=== PATIENT | male | born 1965 | race African-American/Black ===

== ENCOUNTER 2016-10-29 10:37 | Emergency (ER) | payer SELFPAY ==
[~2016-10-29] VITALS: Ht 167.6 cm; Wt 110.0 kg
[2016-10-29] MEDS ORDERED: TETANUS, DIPHTHERIA, PERTUSSIS VAC/PF 0.5ML (>7YR OLD) IM ONE (11:30)
[2016-10-29] MEDS: KETOROLAC 60MG/2ML VIAL IM ONE (11:55)
[2016-10-29 14:24] VITALS: BP 148/81
== END 2016-10-29 14:29 | disposition home or self-care (01) ==
LOC: ER 11:59
DX: S61.452A Open bite of left hand, initial encounter (principal); I51.9 Heart disease, unspecified; F17.200 Nicotine dependence, unspecified, uncomplicated; W54.0XXA Bitten by dog, initial encounter; Y93.89 Activity, other specified; Y92.89 Other specified places as the place of occurrence of the external cause; Y99.8 Other external cause status
CPT/HCPCS: 90471; 90715; 93005; 99283; J1885

== ENCOUNTER 2022-01-16 00:27 | Inpatient (IN) | payer OTHER ==
[~2022-01-16] VITALS: Ht 172.7 cm; Wt 97.1 kg
[2022-01-16 04:22] LABS: CHLORIDE 93 mEq/L (98-107)
[2022-01-16 04:30] LABS: BASOPHILS % 0.8 % (0.0-2.0); EOSINOPHILS % 2.6 % (0.0-5.0); HEMOGLOBIN. 8.9 g/dL (14.0-18.0); LYMPHOCYTES % 23.1 % (20.0-50.0); MEAN CORPUSCULAR HEMOGLOBIN 28.9 pg (28.0-32.0); MEAN CORPUSCULAR VOLUME 87.9 fL (80.0-94.0); MEAN PLATELET VOLUME 6.9 fl (7.4-10.4); MONOCYTES % 8.3 % (2.0-8.0); NEUTROPHILS % 65.2 % (40.0-76.0); PLATELET 575 x1000/uL (130-400); RED BLOOD CELL COUNT 3.07 mill/uL (4.7-6.1); RED CELL DISTRIBUTION WIDTH 16.1 % (11.6-14.6)
[2022-01-16 04:31] LABS: ETHANOL BLOOD < 10 mg/dL
[2022-01-16 04:32] LABS: BG BASE EXCESS -5.7 mmol/L (-2.0-2.0); BG CARBOXYHEMOGLOBIN 0.3 % (0.5-1.5); BG DEOXYHEMOGLOBIN 1.4 % (0.0-5.0); BG FRACTION INSPIRED OXYGEN 36; BG HCO3 ACT 17.1 mmol/L (22.0-26.0); BG METHEMOGLOBIN 0.1 % (0.0-1.5); BG OXYGEN SATURATION 98.6 % (92.0-98.5); BG OXYHEMOGLOBIN 98.2 % (94.0-97.0); BG PCO2 26.4 mmHg (35.0-45.0); BG PO2 143.7 mmHg (75.0-100.0); BG SAMPLE SITE LEFT BRACHIAL; BG TOTAL HEMOGLOBIN 12.4 g/dL (12.0-18.0); BG VENT MODE NASAL CANNULA
[2022-01-16] MEDS ORDERED: CALCIUM GLUCONATE 100MG/ML 10ML VIAL IV ONE (05:15)
[2022-01-16] MEDS ORDERED: FUROSEMIDE 40MG/4ML VIAL IVP ONE (05:15)
[2022-01-16] MEDS ORDERED: FUROSEMIDE 40MG/4ML VIAL ONE (06:47)
[2022-01-16] MEDS ORDERED: CALCIUM GLUCONATE 1GM PREMIX 50 ML IV NR (08:00)
[2022-01-16] MEDS ORDERED: APIX5TAB PO (10:13)
[2022-01-16] MEDS ORDERED: AMIO100T4 PO (10:13)
[2022-01-16] MEDS ORDERED: ATOR-2 PO (10:13)
[2022-01-16] MEDS ORDERED: FURO-151 PO (10:13)
[2022-01-16] MEDS ORDERED: METO-396 PO (10:13)
[2022-01-16] MEDS ORDERED: PROT40 PO (10:13)
[2022-01-16] MEDS ORDERED: TEMA30CA PO (10:33)
[2022-01-16] MEDS ORDERED: RISP2TAB85 PO (10:33)
[2022-01-16] MEDS ORDERED: NEPVIT PO (10:33)
[2022-01-16] MEDS ORDERED: ENOXAPARIN 40MG/0.4ML SYR SUBCUT SCH (10:45)
[2022-01-16] MEDS ORDERED: ONDANSETRON HCL 4MG/2ML INJ IV PRN (10:45)
[2022-01-16] MEDS ORDERED: ACETAMINOPHEN 325MG TABLET PO PRN (10:45)
[2022-01-16] MEDS ORDERED: IPRATROPIUM/ALBUTEROL 0.5-3(2.5)MG/3ML NEB HHN PRN (10:45)
[2022-01-16] MEDS: FUROSEMIDE 40MG/4ML VIAL IVP SCH (11:43)
[2022-01-16 12:00] VITALS: BP 99/61
[2022-01-16 12:53] VITALS: BP 99/61
[2022-01-16] MEDS: ENOXAPARIN 40MG/0.4ML SYR SUBCUT SCH (13:54)
[2022-01-16] MEDS ORDERED: SODIUM POLYSTYRENE SULFONATE 15 G/60 ML BOT PO ONE (14:00)
[2022-01-16] MEDS ORDERED: PNEUMOCOCCAL VACCINE IM ONE (14:15)
[2022-01-16] MEDS ORDERED: INFLUENZA VACCINE IM ONE (14:15)
[2022-01-16 16:00] VITALS: BP 106/68
[2022-01-16 17:46] LABS: CLARITY URINE CLEAR (CLEAR); COLOR URINE YELLOW (YELLOW); KETONES URINE NEGATIVE (NEGATIVE); LEUKOCYTE ESTERASE URINE NEGATIVE (NEGATIVE); NITRITE URINE NEGATIVE (NEGATIVE); OCCULT BLOOD URINE TRACE (NEGATIVE); PROTEIN URINE TRACE (NEGATIVE); UROBILINOGEN URINE 0.2 E.U./dL (0.2-1.0)
[2022-01-16 18:26] LABS: INR 1.3; PROTHROMBIN TIME 13.5 sec (9.6-11.0)
[2022-01-16 18:42] LABS: *AMPHETAMINES SCREEN URINE NEGATIVE (NEGATIVE); *BARBITURATES SCREEN URINE NEGATIVE (NEGATIVE); *BENZODIAZEPINES SCREEN URINE NEGATIVE (NEGATIVE); *COCAINE SCREEN URINE NEGATIVE (NEGATIVE); CANNABINOID URINE SCREEN NEGATIVE (NEGATIVE); METHADONE URINE SCREEN NEGATIVE (NEGATIVE); OPIATES URINE SCREEN NEGATIVE (NEGATIVE); PHENCYCLIDINE URINE SCREEN NEGATIVE (NEGATIVE)
[2022-01-16 19:04] LABS: CREATINE KINASE MB FRACTION 3.3 ng/mL (0.5-3.6)
[2022-01-16 20:00] VITALS: BP 116/76
[2022-01-16 20:57] LABS: BASOPHILS % 0.9 % (0.0-2.0); EOSINOPHILS % 6.2 % (0.0-5.0); HEMATOCRIT. 24.9 % (42.0-52.0); HEMOGLOBIN. 8.4 g/dL (14.0-18.0); LYMPHOCYTES % 18.4 % (20.0-50.0); MEAN CORPUSCULAR HEMOGLOBIN 29.5 pg (28.0-32.0); MEAN CORPUSCULAR VOLUME 87.5 fL (80.0-94.0); MONOCYTES % 8.6 % (2.0-8.0); NEUTROPHILS % 65.9 % (40.0-76.0); PLATELET 595 x1000/uL (130-400); RED BLOOD CELL COUNT 2.85 mill/uL (4.7-6.1); RED CELL DISTRIBUTION WIDTH 16.7 % (11.6-14.6)
[2022-01-16 21:16] LABS: CHLORIDE 96 mEq/L (98-107)
[2022-01-16 21:26] LABS: HDL CHOLESTEROL 43 mg/dL (40-59); LDL CHOLESTEROL 54 mg/dL (5-100)
[2022-01-17] VITALS: BP 92/58
[2022-01-17 02:11] LABS: CREATINE KINASE MB FRACTION 2.7 ng/mL (0.5-3.6)
[2022-01-17 04:00] VITALS: BP 119/57
[2022-01-17 06:44] LABS: BASOPHILS % 0.9 % (0.0-2.0); EOSINOPHILS % 4.9 % (0.0-5.0); HEMATOCRIT. 23.2 % (42.0-52.0); HEMOGLOBIN. 7.8 g/dL (14.0-18.0); LYMPHOCYTES % 15.3 % (20.0-50.0); MEAN CORPUSCULAR HEMOGLOBIN 28.7 pg (28.0-32.0); MEAN CORPUSCULAR VOLUME 85.9 fL (80.0-94.0); MEAN PLATELET VOLUME 6.7 fl (7.4-10.4); MONOCYTES % 6.4 % (2.0-8.0); NEUTROPHILS % 72.5 % (40.0-76.0); PLATELET 533 x1000/uL (130-400); RED CELL DISTRIBUTION WIDTH 16.3 % (11.6-14.6)
[2022-01-17 07:49] LABS: CHLORIDE 93 mEq/L (98-107); CREATINE KINASE 181 IU/L (39-308); PHOSPHORUS 5.1 mg/dL (2.5-4.9)
[2022-01-17 08:00] VITALS: BP 94/57
[2022-01-17] MEDS: ASPIRIN 81MG TABLET PO SCH (08:33)
[2022-01-17] MEDS: FUROSEMIDE 40MG/4ML VIAL IVP SCH (08:33)
[2022-01-17] MEDS ORDERED: POTASSIUM CHLORIDE INJ 40 MEQ in DEXT 5% WATER 250 ML IV ONE (10:00)
[2022-01-17 12:00] VITALS: BP 90/57
[2022-01-17 12:11] LABS: BG BASE EXCESS -1.4 mmol/L (-2.0-2.0); BG CARBOXYHEMOGLOBIN 0.2 % (0.5-1.5); BG DEOXYHEMOGLOBIN 6.8 % (0.0-5.0); BG HCO3 ACT 22.2 mmol/L (22.0-26.0); BG METHEMOGLOBIN 0.3 % (0.0-1.5); BG OXYGEN SATURATION 93.2 % (92.0-98.5); BG OXYHEMOGLOBIN 92.7 % (94.0-97.0); BG PCO2 32.7 mmHg (35.0-45.0); BG PH 7.449 (7.350-7.450); BG PO2 69.5 mmHg (75.0-100.0); BG SAMPLE SITE RIGHT RADIAL; BG TOTAL HEMOGLOBIN 8.8 g/dL (12.0-18.0); BG VENT MODE ROOM AIR
[2022-01-17] MEDS: KCL 20MEQ/100ML X 2 FOR TOTAL KCL 40MEQ/200ML IV SCH ×2 (13:00→13:11)
[2022-01-17] MEDS: ENOXAPARIN 40MG/0.4ML SYR SUBCUT SCH (13:12)
[2022-01-17] MEDS ORDERED: POTASSIUM CHLORIDE 20MEQ TABLET SR PO NR (14:30)
[2022-01-17 15:27] VITALS: BP 93/59
[2022-01-17 20:00] VITALS: BP 109/69
[2022-01-18] VITALS (8 sets, daily range): BP systolic 84–112; BP diastolic 51–72
[2022-01-18 08:32] LABS: BASOPHILS % 0.8 % (0.0-2.0); EOSINOPHILS % 8.1 % (0.0-5.0); HEMATOCRIT. 24.1 % (42.0-52.0); HEMOGLOBIN. 8.1 g/dL (14.0-18.0); LYMPHOCYTES % 18.6 % (20.0-50.0); MEAN CORPUSCULAR HEMOGLOBIN 29.5 pg (28.0-32.0); MEAN CORPUSCULAR VOLUME 87.4 fL (80.0-94.0); MEAN PLATELET VOLUME 7.1 fl (7.4-10.4); MONOCYTES % 7.7 % (2.0-8.0); NEUTROPHILS % 64.8 % (40.0-76.0); PLATELET 514 x1000/uL (130-400); RED BLOOD CELL COUNT 2.75 mill/uL (4.7-6.1); RED CELL DISTRIBUTION WIDTH 16.5 % (11.6-14.6)
[2022-01-18] MEDS: FUROSEMIDE 40MG/4ML VIAL IVP SCH ×2 (09:01→18:01)
[2022-01-18] MEDS: ASPIRIN 81MG TABLET PO SCH (09:04)
[2022-01-18 10:38] LABS: PHOSPHORUS 3.8 mg/dL (2.5-4.9)
[2022-01-18] MEDS ORDERED: POTASSIUM CHLORIDE 20MEQ TABLET SR PO NR (11:15)
[2022-01-18] MEDS: ENOXAPARIN 40MG/0.4ML SYR SUBCUT SCH (11:36)
[2022-01-18] MEDS ORDERED: REGADENOSON 0.4 MG/5 ML IV ONE (11:45)
[2022-01-18] MEDS ORDERED: LACTULOSE 20G/30ML UDC PO PRN (17:00)
[2022-01-18] MEDS: CARVEDILOL 3.125 MG TABLET PO SCH (21:00)
[2022-01-19] VITALS: BP 93/58
[2022-01-19 04:00] VITALS: BP 90/63
[2022-01-19] MEDS: FUROSEMIDE 40MG/4ML VIAL IVP SCH ×2 (06:00→18:12)
[2022-01-19 06:42] LABS: BASOPHILS % 0.5 % (0.0-2.0); EOSINOPHILS % 4.5 % (0.0-5.0); HEMATOCRIT. 24.6 % (42.0-52.0); HEMOGLOBIN. 8.1 g/dL (14.0-18.0); LYMPHOCYTES % 16.7 % (20.0-50.0); MEAN CORPUSCULAR VOLUME 87.7 fL (80.0-94.0); MEAN PLATELET VOLUME 7.3 fl (7.4-10.4); MONOCYTES % 8.9 % (2.0-8.0); NEUTROPHILS % 69.4 % (40.0-76.0); PLATELET 470 x1000/uL (130-400); RED CELL DISTRIBUTION WIDTH 16.4 % (11.6-14.6)
[2022-01-19 08:00] VITALS: BP 91/64
[2022-01-19] MEDS: CARVEDILOL 3.125 MG TABLET PO SCH ×2 (09:00→21:00)
[2022-01-19] MEDS: ASPIRIN 81MG TABLET PO SCH (09:20)
[2022-01-19] MEDS ORDERED: REGADENOSON 0.4 MG/5 ML IV ONE ×2 (10:20→14:00)
[2022-01-19 11:08] LABS: VITAMIN B12 SERUM 923 pg/mL (211-911)
[2022-01-19] MEDS: ENOXAPARIN 40MG/0.4ML SYR SUBCUT SCH (11:12)
[2022-01-19 12:00] VITALS: BP 100/72
[2022-01-19 16:00] VITALS: BP 94/55
[2022-01-19 20:00] VITALS: BP 98/65
[2022-01-20] VITALS: BP 93/68
[2022-01-20 04:00] VITALS: BP 91/59
[2022-01-20] MEDS: FUROSEMIDE 40MG/4ML VIAL IVP SCH ×2 (06:00→18:24)
[2022-01-20 07:54] LABS: BASOPHILS % 0.7 % (0.0-2.0); EOSINOPHILS % 9.3 % (0.0-5.0); HEMATOCRIT. 25.4 % (42.0-52.0); HEMOGLOBIN. 8.3 g/dL (14.0-18.0); LYMPHOCYTES % 16.2 % (20.0-50.0); MEAN CORPUSCULAR HEMOGLOBIN 28.6 pg (28.0-32.0); MEAN CORPUSCULAR VOLUME 87.4 fL (80.0-94.0); MEAN PLATELET VOLUME 7.4 fl (7.4-10.4); MONOCYTES % 7.4 % (2.0-8.0); NEUTROPHILS % 66.4 % (40.0-76.0); PLATELET 394 x1000/uL (130-400); RED BLOOD CELL COUNT 2.91 mill/uL (4.7-6.1); RED CELL DISTRIBUTION WIDTH 16.6 % (11.6-14.6)
[2022-01-20 08:00] VITALS: BP 91/64
[2022-01-20] MEDS: CARVEDILOL 3.125 MG TABLET PO SCH ×2 (09:00→21:00)
[2022-01-20] MEDS: ASPIRIN 81MG TABLET PO SCH (09:00)
[2022-01-20 10:45] LABS: PHOSPHORUS 3.9 mg/dL (2.5-4.9)
[2022-01-20] MEDS: ENOXAPARIN 40MG/0.4ML SYR SUBCUT SCH (11:32)
[2022-01-20 12:00] VITALS: BP 95/69
[2022-01-20 16:00] VITALS: BP 90/67
[2022-01-20 20:00] VITALS: BP 92/65
[2022-01-21] VITALS: BP 98/67
[2022-01-21 04:00] VITALS: BP 104/70
[2022-01-21] MEDS: FUROSEMIDE 40MG/4ML VIAL IVP SCH ×2 (05:07→18:00)
[2022-01-21 07:22] LABS: BASOPHILS % 0.8 % (0.0-2.0); EOSINOPHILS % 8.3 % (0.0-5.0); HEMATOCRIT. 26.4 % (42.0-52.0); HEMOGLOBIN. 8.6 g/dL (14.0-18.0); LYMPHOCYTES % 18.6 % (20.0-50.0); MEAN CORPUSCULAR HEMOGLOBIN 28.8 pg (28.0-32.0); MEAN CORPUSCULAR VOLUME 88.6 fL (80.0-94.0); MEAN PLATELET VOLUME 7.1 fl (7.4-10.4); MONOCYTES % 6.6 % (2.0-8.0); NEUTROPHILS % 65.7 % (40.0-76.0); PLATELET 357 x1000/uL (130-400); RED BLOOD CELL COUNT 2.98 mill/uL (4.7-6.1); RED CELL DISTRIBUTION WIDTH 16.7 % (11.6-14.6)
[2022-01-21 08:00] VITALS: BP 99/65
[2022-01-21] MEDS: CARVEDILOL 3.125 MG TABLET PO SCH ×2 (09:00→21:00)
[2022-01-21 09:08] LABS: PHOSPHORUS 3.6 mg/dL (2.5-4.9)
[2022-01-21] MEDS: ASPIRIN 81MG TABLET PO SCH (09:52)
[2022-01-21] MEDS: ENOXAPARIN 40MG/0.4ML SYR SUBCUT SCH (11:12)
[2022-01-21 12:00] VITALS: BP 98/71
[2022-01-21] MEDS: MIDODRINE HCL 2.5MG TABLET PO SCH ×2 (15:30→18:33)
[2022-01-21 16:00] VITALS: BP 98/66
[2022-01-21] MEDS ORDERED: MIDO2.5T PO (16:31)
[2022-01-21] MEDS ORDERED: COR3 PO (16:31)
[2022-01-21] MEDS ORDERED: FURO-151 PO (16:31)
[2022-01-21 20:00] VITALS: BP 96/70
[2022-01-22] VITALS: BP 97/68
[2022-01-22 03:04] VITALS: BP 96/62
[2022-01-22 04:00] VITALS: BP 95/60
[2022-01-22] MEDS: FUROSEMIDE 40MG/4ML VIAL IVP SCH (06:00)
[2022-01-22 06:19] LABS: BASOPHILS % 0.6 % (0.0-2.0); HEMATOCRIT. 24.6 % (42.0-52.0); LYMPHOCYTES % 15.9 % (20.0-50.0); MEAN CORPUSCULAR HEMOGLOBIN 29.1 pg (28.0-32.0); MEAN CORPUSCULAR VOLUME 89.4 fL (80.0-94.0); MONOCYTES % 6.8 % (2.0-8.0); NEUTROPHILS % 69.7 % (40.0-76.0); RED BLOOD CELL COUNT 2.75 mill/uL (4.7-6.1); RED CELL DISTRIBUTION WIDTH 17.7 % (11.6-14.6)
[2022-01-22 06:34] LABS: PHOSPHORUS 3.7 mg/dL (2.5-4.9)
[2022-01-22 08:00] VITALS: BP 88/63
[2022-01-22] MEDS: CARVEDILOL 3.125 MG TABLET PO SCH (08:56)
[2022-01-22] MEDS: MIDODRINE HCL 2.5MG TABLET PO SCH (08:57)
[2022-01-22] MEDS: ASPIRIN 81MG TABLET PO SCH (08:57)
[2022-01-22 10:10] VITALS: BP 96/62
[2022-01-22] MEDS: ENOXAPARIN 40MG/0.4ML SYR SUBCUT SCH (11:12)
[2022-01-22 11:39] LABS: MEAN PLATELET VOLUME 7.4 fl (7.4-10.4); PLATELET 327 x1000/uL (130-400)
[2022-01-22 12:00] VITALS: BP 91/67
== END 2022-01-22 14:05 | disposition home or self-care (01) | DRG 194 ==
LOC: ER 00:27 → 7WST 05:46 → EDBEDREQ 05:54 → ENRESERV 07:00
PROVIDERS: ADMIT Internal Medicine; ATTEND Internal Medicine
DX: I13.0 Hypertensive heart and chronic kidney disease with heart failure and stage 1 through stage 4 chronic kidney disease, or unspecified chronic kidney disease (principal); E44.0 Moderate protein-calorie malnutrition; I82.411 Acute embolism and thrombosis of right femoral vein; N17.9 Acute kidney failure, unspecified; E87.1 Hypo-osmolality and hyponatremia; I48.91 Unspecified atrial fibrillation; I42.0 Dilated cardiomyopathy; D64.9 Anemia, unspecified; I50.23 Acute on chronic systolic (congestive) heart failure; E78.5 Hyperlipidemia, unspecified; F17.210 Nicotine dependence, cigarettes, uncomplicated; E87.6 Hypokalemia; N18.9 Chronic kidney disease, unspecified; D75.839 Thrombocytosis, unspecified; I25.10 Atherosclerotic heart disease of native coronary artery without angina pectoris; Z20.822 Contact with and (suspected) exposure to COVID-19; I36.1 Nonrheumatic tricuspid (valve) insufficiency; E87.5 Hyperkalemia; R06.89 Other abnormalities of breathing; R79.89 Other specified abnormal findings of blood chemistry; Z68.32 Body mass index [BMI] 32.0-32.9, adult; I25.2 Old myocardial infarction; Z82.49 Family history of ischemic heart disease and other diseases of the circulatory system
CPT/HCPCS: 36415; 36600; 71045; 71250; 76770; 78452; 80048; 80053; 80061; 80305; 80320; 81003; 82375; 82533; 82550; 82553; 82570; 82607; 82805; 82962; 83540; 83550; 83735; 83880; 84100; 84443; 84484; 84540; 85025; 85379; 87426; 90686; 90732; 93005; 93306; 93970; 97116; 97162; 97165; 97530; 99291; A9500; C9803; J0610; J1650; J1940; J2785; J3480; A4315; G0480

== ENCOUNTER 2022-01-24 18:33 | Inpatient (IN) | payer OTHER, MEDICAID ==
[~2022-01-24] VITALS: Ht 167.6 cm; Wt 96.2 kg
[~2022-01-24 18:33] MED LIST: AMIO100T4 PO; APIX5TAB PO; ATOR-2 PO; COR3 PO; FURO-151 PO; MIDO2.5T PO; NEPVIT PO; PROT40 PO; RISP2TAB85 PO; TEMA30CA PO
[2022-01-24] MEDS ORDERED: SODIUM CHLORIDE 0.9% 1,000 ML IV ONE (19:15)
[2022-01-24 19:38] LABS: BASOPHILS % 0.5 % (0.0-2.0); HEMOGLOBIN. 9.8 g/dL (14.0-18.0); LYMPHOCYTES % 15.4 % (20.0-50.0); MEAN CORPUSCULAR HEMOGLOBIN 29.4 pg (28.0-32.0); MEAN PLATELET VOLUME 8.4 fl (7.4-10.4); MONOCYTES % 5.8 % (2.0-8.0); NEUTROPHILS % 74.3 % (40.0-76.0); PLATELET 386 x1000/uL (130-400); RED BLOOD CELL COUNT 3.33 mill/uL (4.7-6.1); RED CELL DISTRIBUTION WIDTH 18.3 % (11.6-14.6)
[2022-01-24 19:43] LABS: CHLORIDE 100 mEq/L (98-107)
[2022-01-24] MEDS ORDERED: CALCIUM GLUCONATE 100MG/ML 10ML VIAL IV NR (22:30)
[2022-01-24] MEDS ORDERED: NOREPINEPHRINE 8 MG in DEXTROSE 5% WATER 250 ML IV NR (22:30)
[2022-01-25] VITALS (54 sets, daily range): BP systolic 60–127; BP diastolic 37–98
[2022-01-25] MEDS ORDERED: NOREPINEPHRINE 8MG/250ML PMX 250 ML IV PRN (08:30)
[2022-01-25] MEDS ORDERED: NOREPINEPHRINE 8 MG in DEXTROSE 5% WATER 250 ML IV PRN (10:45)
[2022-01-25] MEDS: ASPIRIN 81MG EC TABLET PO SCH (11:35)
[2022-01-25] MEDS: ENOXAPARIN 30MG/0.3ML SYR SUBCUT SCH (11:35)
[2022-01-25 12:17] LABS: BG BASE EXCESS -1.6 mmol/L (-2.0-2.0); BG CARBOXYHEMOGLOBIN 0.6 % (0.5-1.5); BG DEOXYHEMOGLOBIN 0.5 % (0.0-5.0); BG FRACTION INSPIRED OXYGEN 50; BG HCO3 ACT 22.7 mmol/L (22.0-26.0); BG METHEMOGLOBIN 0.3 % (0.0-1.5); BG OXYGEN SATURATION 99.5 % (92.0-98.5); BG OXYHEMOGLOBIN 98.6 % (94.0-97.0); BG PCO2 36.5 mmHg (35.0-45.0); BG PH 7.412 (7.350-7.450); BG SAMPLE SITE RIGHT BRACHIAL; BG TOTAL HEMOGLOBIN 9.3 g/dL (12.0-18.0); BG VENT MODE MASK - BIPAP
[2022-01-25] MEDS ORDERED: ONDANSETRON HCL 4MG/2ML INJ IV PRN (17:15)
[2022-01-25] MEDS ORDERED: ACETAMINOPHEN 325MG TABLET PO PRN ×2 (17:15)
[2022-01-25] MEDS: PANTOPRAZOLE SODIUM 40 MG/VIAL IV SCH (17:30)
[2022-01-25] MEDS: CARVEDILOL 6.25 MG TABLET PO SCH (21:00)
[2022-01-25] MEDS: ATORVASTATIN CALCIUM 20MG TABLET PO SCH (21:01)
[2022-01-25] MEDS: MAGNESIUM/ALUMINUM HYDROXIDE/SIMETHICONE 30ML UDC PO PRN (21:01)
[2022-01-25] MEDS: SODIUM CHLORIDE 0.9% INJ 3ML FLUSH IVF SCH (22:21)
[2022-01-25] MEDS: DIPHENHYDRAMINE 50MG/ML VIAL IV PRN (23:50)
[2022-01-26] VITALS (82 sets, daily range): BP systolic 82–165; BP diastolic 39–107
[2022-01-26] MEDS: SODIUM CHLORIDE 0.9% INJ 3ML FLUSH IVF SCH ×3 (05:05→21:06)
[2022-01-26] MEDS: DIPHENHYDRAMINE 50MG/ML VIAL IV PRN (05:05)
[2022-01-26 05:47] LABS: BASOPHILS % 0.6 % (0.0-2.0); EOSINOPHILS % 5.3 % (0.0-5.0); HEMATOCRIT. 26.5 % (42.0-52.0); HEMOGLOBIN. 8.6 g/dL (14.0-18.0); LYMPHOCYTES % 24.7 % (20.0-50.0); MEAN CORPUSCULAR HEMOGLOBIN 29.3 pg (28.0-32.0); MEAN CORPUSCULAR VOLUME 90.9 fL (80.0-94.0); MEAN PLATELET VOLUME 7.2 fl (7.4-10.4); MONOCYTES % 7.9 % (2.0-8.0); NEUTROPHILS % 61.5 % (40.0-76.0); PLATELET 246 x1000/uL (130-400); RED BLOOD CELL COUNT 2.92 mill/uL (4.7-6.1); RED CELL DISTRIBUTION WIDTH 18.6 % (11.6-14.6)
[2022-01-26] MEDS: MAGNESIUM/ALUMINUM HYDROXIDE/SIMETHICONE 30ML UDC PO PRN (05:57)
[2022-01-26 06:17] LABS: CHLORIDE 104 mEq/L (98-107)
[2022-01-26 06:33] LABS: PHOSPHORUS 3.4 mg/dL (2.5-4.9)
[2022-01-26 06:38] LABS: HEPATITIS B SURFACE ANTIGEN NEGATIVE
[2022-01-26] MEDS: PANTOPRAZOLE SODIUM 40 MG/VIAL IV SCH (08:42)
[2022-01-26] MEDS: ENOXAPARIN 30MG/0.3ML SYR SUBCUT SCH (08:43)
[2022-01-26] MEDS: ASPIRIN 81MG EC TABLET PO SCH (08:43)
[2022-01-26] MEDS: CARVEDILOL 6.25 MG TABLET PO SCH ×2 (08:43→21:06)
[2022-01-26] MEDS ORDERED: MAGNESIUM/ALUMINUM HYDROXIDE/SIMETHICONE 30ML UDC PO NR (10:00)
[2022-01-26] MEDS: FUROSEMIDE 40MG TABLET PO SCH (10:30)
[2022-01-26] MEDS: DOCUSATE SODIUM 100MG CAPSULE PO SCH ×2 (12:26→17:55)
[2022-01-26] MEDS: MIDODRINE HCL 5MG TABLET PO SCH ×2 (12:26→17:58)
[2022-01-26] MEDS: ATORVASTATIN CALCIUM 20MG TABLET PO SCH (20:21)
[2022-01-27] VITALS (62 sets, daily range): BP systolic 59–147; BP diastolic 29–118
[2022-01-27] MEDS: DIPHENHYDRAMINE 50MG/ML VIAL IV PRN (00:01)
[2022-01-27] MEDS: SODIUM CHLORIDE 0.9% INJ 3ML FLUSH IVF SCH ×3 (06:24→22:00)
[2022-01-27 07:01] LABS: BASOPHILS % 0.7 % (0.0-2.0); EOSINOPHILS % 4.3 % (0.0-5.0); LYMPHOCYTES % 16.4 % (20.0-50.0); MEAN CORPUSCULAR HEMOGLOBIN 29.4 pg (28.0-32.0); MEAN CORPUSCULAR VOLUME 91.9 fL (80.0-94.0); MEAN PLATELET VOLUME 7.4 fl (7.4-10.4); MONOCYTES % 8.1 % (2.0-8.0); NEUTROPHILS % 70.5 % (40.0-76.0); PLATELET 246 x1000/uL (130-400); RED BLOOD CELL COUNT 3.05 mill/uL (4.7-6.1); RED CELL DISTRIBUTION WIDTH 19.3 % (11.6-14.6)
[2022-01-27 07:44] LABS: PHOSPHORUS 3.7 mg/dL (2.5-4.9)
[2022-01-27] MEDS: FUROSEMIDE 40MG TABLET PO SCH (08:33)
[2022-01-27] MEDS: DOCUSATE SODIUM 100MG CAPSULE PO SCH ×2 (08:33→16:49)
[2022-01-27] MEDS: MIDODRINE HCL 5MG TABLET PO SCH ×3 (08:34→16:49)
[2022-01-27] MEDS: PANTOPRAZOLE SODIUM 40 MG/VIAL IV SCH (08:34)
[2022-01-27] MEDS: CARVEDILOL 6.25 MG TABLET PO SCH ×2 (08:34→21:30)
[2022-01-27] MEDS: ENOXAPARIN 30MG/0.3ML SYR SUBCUT SCH (08:34)
[2022-01-27] MEDS: ASPIRIN 81MG EC TABLET PO SCH (08:39)
[2022-01-27] MEDS: OMEPRAZOLE 20MG CAPSULE EXTENDED RELEASE PO SCH (10:19)
[2022-01-27] MEDS ORDERED: LACTULOSE 20G/30ML UDC PO NR (15:45)
[2022-01-27] MEDS: ATORVASTATIN CALCIUM 20MG TABLET PO SCH (20:26)
[2022-01-28] VITALS (30 sets, daily range): BP systolic 91–140; BP diastolic 27–112
[2022-01-28] MEDS: SODIUM CHLORIDE 0.9% INJ 3ML FLUSH IVF SCH ×3 (05:15→21:46)
[2022-01-28 05:34] LABS: BASOPHILS % 0.6 % (0.0-2.0); EOSINOPHILS % 3.7 % (0.0-5.0); HEMATOCRIT. 29.3 % (42.0-52.0); HEMOGLOBIN. 9.3 g/dL (14.0-18.0); LYMPHOCYTES % 19.7 % (20.0-50.0); MEAN CORPUSCULAR HEMOGLOBIN 29.5 pg (28.0-32.0); MEAN CORPUSCULAR VOLUME 93.2 fL (80.0-94.0); MEAN PLATELET VOLUME 7.3 fl (7.4-10.4); MONOCYTES % 8.2 % (2.0-8.0); NEUTROPHILS % 67.8 % (40.0-76.0); PLATELET 233 x1000/uL (130-400); RED BLOOD CELL COUNT 3.15 mill/uL (4.7-6.1); RED CELL DISTRIBUTION WIDTH 20.5 % (11.6-14.6)
[2022-01-28 05:45] LABS: PHOSPHORUS 3.6 mg/dL (2.5-4.9)
[2022-01-28] MEDS: DOCUSATE SODIUM 100MG CAPSULE PO SCH (08:02)
[2022-01-28] MEDS: OMEPRAZOLE 20MG CAPSULE EXTENDED RELEASE PO SCH (08:02)
[2022-01-28] MEDS: ASPIRIN 81MG EC TABLET PO SCH (08:02)
[2022-01-28] MEDS: CARVEDILOL 6.25 MG TABLET PO SCH ×3 (08:03→21:45)
[2022-01-28] MEDS: ENOXAPARIN 30MG/0.3ML SYR SUBCUT SCH (08:03)
[2022-01-28] MEDS: MIDODRINE HCL 5MG TABLET PO SCH ×3 (08:03→18:02)
[2022-01-28] MEDS: FUROSEMIDE 40MG TABLET PO SCH (08:03)
[2022-01-28] MEDS ORDERED: FUROSEMIDE 40MG TABLET PO NR (09:00)
[2022-01-28] MEDS ORDERED: SORBITOL 70% SOLN 30ML PO NR (09:00)
[2022-01-28] MEDS ORDERED: DOCUSATE SODIUM 100MG CAPSULE PO NR (09:00)
[2022-01-28] MEDS: DOCUSATE SODIUM 250MG CAPSULE PO SCH (18:01)
[2022-01-28] MEDS: ATORVASTATIN CALCIUM 20MG TABLET PO SCH (21:43)
[2022-01-29] VITALS: BP 114/79
[2022-01-29 04:00] VITALS: BP 108/77
[2022-01-29] MEDS: SODIUM CHLORIDE 0.9% INJ 3ML FLUSH IVF SCH ×3 (06:00→21:09)
[2022-01-29] MEDS: OMEPRAZOLE 20MG CAPSULE EXTENDED RELEASE PO SCH (07:01)
[2022-01-29 07:52] VITALS: BP 106/75
[2022-01-29] MEDS: CARVEDILOL 6.25 MG TABLET PO SCH ×2 (09:21→21:00)
[2022-01-29] MEDS: ASPIRIN 81MG EC TABLET PO SCH (09:21)
[2022-01-29] MEDS: ENOXAPARIN 30MG/0.3ML SYR SUBCUT SCH (09:21)
[2022-01-29] MEDS: MIDODRINE HCL 5MG TABLET PO SCH ×3 (09:21→17:35)
[2022-01-29] MEDS: FUROSEMIDE 40MG TABLET PO SCH (09:22)
[2022-01-29] MEDS: DOCUSATE SODIUM 250MG CAPSULE PO SCH ×2 (09:22→17:34)
[2022-01-29] MEDS ORDERED: BISACODYL 10MG SUPP PR NR (10:00)
[2022-01-29 12:00] VITALS: BP 99/79
[2022-01-29] MEDS: IPRATROPIUM/ALBUTEROL 0.5-3(2.5)MG/3ML NEB NEB PRN (12:19)
[2022-01-29] MEDS ORDERED: FURO-151 PO (13:03)
[2022-01-29 16:00] VITALS: BP 110/60
[2022-01-29 20:00] VITALS: BP 103/67
[2022-01-29] MEDS: ATORVASTATIN CALCIUM 20MG TABLET PO SCH (21:09)
[2022-01-30] VITALS: BP 105/75
[2022-01-30 04:00] VITALS: BP 109/85
[2022-01-30 07:10] LABS: BASOPHILS % 0.4 % (0.0-2.0); EOSINOPHILS % 1.3 % (0.0-5.0); HEMATOCRIT. 26.6 % (42.0-52.0); HEMOGLOBIN. 8.4 g/dL (14.0-18.0); LYMPHOCYTES % 16.8 % (20.0-50.0); MEAN CORPUSCULAR HEMOGLOBIN 28.4 pg (28.0-32.0); MEAN CORPUSCULAR VOLUME 89.9 fL (80.0-94.0); MONOCYTES % 5.9 % (2.0-8.0); NEUTROPHILS % 75.6 % (40.0-76.0); PLATELET 192 x1000/uL (130-400); RED BLOOD CELL COUNT 2.96 mill/uL (4.7-6.1); RED CELL DISTRIBUTION WIDTH 20.2 % (11.6-14.6)
[2022-01-30] MEDS: SODIUM CHLORIDE 0.9% INJ 3ML FLUSH IVF SCH ×3 (07:12→22:04)
[2022-01-30 08:00] VITALS: BP 103/74
[2022-01-30] MEDS: CARVEDILOL 6.25 MG TABLET PO SCH ×2 (09:00→21:51)
[2022-01-30 10:04] LABS: CHLORIDE 101 mEq/L (98-107)
[2022-01-30] MEDS: IPRATROPIUM/ALBUTEROL 0.5-3(2.5)MG/3ML NEB NEB PRN (10:05)
[2022-01-30 10:18] LABS: PHOSPHORUS 3.8 mg/dL (2.5-4.9)
[2022-01-30] MEDS: FAMOTIDINE 20MG TABLET PO SCH (11:09)
[2022-01-30] MEDS: ENOXAPARIN 30MG/0.3ML SYR SUBCUT SCH (11:09)
[2022-01-30] MEDS: MIDODRINE HCL 5MG TABLET PO SCH ×3 (11:09→17:47)
[2022-01-30] MEDS: DOCUSATE SODIUM 250MG CAPSULE PO SCH ×2 (11:09→17:00)
[2022-01-30] MEDS: FUROSEMIDE 40MG TABLET PO SCH ×2 (11:10→17:00)
[2022-01-30] MEDS: ASPIRIN 81MG EC TABLET PO SCH (11:10)
[2022-01-30 12:00] VITALS: BP 108/75
[2022-01-30 16:00] VITALS: BP 113/78
[2022-01-30 20:00] VITALS: BP 112/58
[2022-01-30] MEDS: ATORVASTATIN CALCIUM 20MG TABLET PO SCH (21:51)
[2022-01-31] VITALS: BP 128/60
[2022-01-31 04:00] VITALS: BP 120/79
[2022-01-31 06:18] LABS: BASOPHILS % 0.3 % (0.0-2.0); EOSINOPHILS % 1.6 % (0.0-5.0); HEMATOCRIT. 27.5 % (42.0-52.0); HEMOGLOBIN. 8.8 g/dL (14.0-18.0); LYMPHOCYTES % 17.3 % (20.0-50.0); MEAN CORPUSCULAR HEMOGLOBIN 28.6 pg (28.0-32.0); MEAN CORPUSCULAR VOLUME 89.4 fL (80.0-94.0); MEAN PLATELET VOLUME 8.2 fl (7.4-10.4); MONOCYTES % 7.5 % (2.0-8.0); NEUTROPHILS % 73.3 % (40.0-76.0); PLATELET 192 x1000/uL (130-400); RED BLOOD CELL COUNT 3.08 mill/uL (4.7-6.1); RED CELL DISTRIBUTION WIDTH 20.5 % (11.6-14.6)
[2022-01-31] MEDS: SODIUM CHLORIDE 0.9% INJ 3ML FLUSH IVF SCH ×3 (06:39→22:02)
[2022-01-31 06:58] LABS: CHLORIDE 102 mEq/L (98-107)
[2022-01-31 07:05] LABS: PHOSPHORUS 4.5 mg/dL (2.5-4.9)
[2022-01-31 08:14] VITALS: BP 94/61
[2022-01-31] MEDS: CARVEDILOL 3.125 MG TABLET PO SCH ×3 (09:00→21:59)
[2022-01-31] MEDS: DOCUSATE SODIUM 250MG CAPSULE PO SCH ×3 (09:00→16:04)
[2022-01-31] MEDS: ASPIRIN 81MG EC TABLET PO SCH (09:15)
[2022-01-31] MEDS: MIDODRINE HCL 5MG TABLET PO SCH ×3 (09:17→16:58)
[2022-01-31] MEDS: FUROSEMIDE 40MG TABLET PO SCH ×2 (09:18→16:58)
[2022-01-31] MEDS: FAMOTIDINE 20MG TABLET PO SCH (09:18)
[2022-01-31] MEDS: ENOXAPARIN 30MG/0.3ML SYR SUBCUT SCH (09:18)
[2022-01-31 12:05] VITALS: BP 99/63
[2022-01-31 16:00] VITALS: BP 112/60
[2022-01-31] MEDS: IRON SUCROSE COMPLEX 100 MG/5 ML ML IV SCH (16:58)
[2022-01-31 20:00] VITALS: BP 140/88
[2022-01-31] MEDS: HEMORRHOIDAL SUPP PR SCH (21:00)
[2022-01-31] MEDS: ATORVASTATIN CALCIUM 20MG TABLET PO SCH ×2 (21:00→22:00)
[2022-02-01] VITALS: BP 148/89
[2022-02-01 04:00] VITALS: BP 162/91
[2022-02-01] MEDS: SODIUM CHLORIDE 0.9% INJ 3ML FLUSH IVF SCH ×3 (05:59→21:16)
[2022-02-01 06:13] LABS: BASOPHILS % 0.5 % (0.0-2.0); EOSINOPHILS % 2.8 % (0.0-5.0); MEAN CORPUSCULAR HEMOGLOBIN 29.1 pg (28.0-32.0); MEAN CORPUSCULAR VOLUME 90.2 fL (80.0-94.0); MEAN PLATELET VOLUME 8.4 fl (7.4-10.4); MONOCYTES % 7.6 % (2.0-8.0); NEUTROPHILS % 71.1 % (40.0-76.0); PLATELET 208 x1000/uL (130-400); RED CELL DISTRIBUTION WIDTH 20.4 % (11.6-14.6)
[2022-02-01 08:06] VITALS: BP 99/68
[2022-02-01] MEDS: ASPIRIN 81MG EC TABLET PO SCH (09:00)
[2022-02-01] MEDS: DOCUSATE SODIUM 250MG CAPSULE PO SCH ×2 (09:00→17:00)
[2022-02-01] MEDS: ENOXAPARIN 30MG/0.3ML SYR SUBCUT SCH (09:00)
[2022-02-01] MEDS: MIDODRINE HCL 5MG TABLET PO SCH ×3 (10:06→17:16)
[2022-02-01] MEDS: FAMOTIDINE 20MG TABLET PO SCH (10:06)
[2022-02-01] MEDS: FUROSEMIDE 40MG TABLET PO SCH ×2 (10:06→17:16)
[2022-02-01] MEDS: CARVEDILOL 3.125 MG TABLET PO SCH ×2 (10:07→21:22)
[2022-02-01] MEDS: HEMORRHOIDAL SUPP PR SCH ×2 (10:08→21:22)
[2022-02-01 12:03] VITALS: BP 100/74
[2022-02-01] MEDS ORDERED: FURO80TA87 MT (13:33)
[2022-02-01] MEDS ORDERED: LEVO250T74 MT (13:33)
[2022-02-01] MEDS: AZITHROMYCIN 250 MG TABLET PO SCH (14:17)
[2022-02-01 16:20] VITALS: BP 94/67
[2022-02-01] MEDS: CEFTRIAXONE 1,000 MG in DEXTROSE 5% WATER 50 ML IV SCH (17:16)
[2022-02-01] MEDS: IRON SUCROSE COMPLEX 100 MG/5 ML ML IV SCH (17:17)
[2022-02-01 19:03] LABS: BG BASE EXCESS -3.5 mmol/L (-2.0-2.0); BG CARBOXYHEMOGLOBIN 0.5 % (0.5-1.5); BG FRACTION INSPIRED OXYGEN 21; BG METHEMOGLOBIN 0.5 % (0.0-1.5); BG OXYGEN SATURATION 94.9 % (92.0-98.5); BG PCO2 19.9 mmHg (35.0-45.0); BG PO2 72.9 mmHg (75.0-100.0); BG SAMPLE SITE LEFT BRACHIAL; BG TOTAL HEMOGLOBIN 11.5 g/dL (12.0-18.0); BG VENT MODE ROOM AIR
[2022-02-01 20:00] VITALS: BP 100/72
[2022-02-01] MEDS: IPRATROPIUM/ALBUTEROL 0.5-3(2.5)MG/3ML NEB NEB PRN (23:53)
[2022-02-02] VITALS: BP 111/75
[2022-02-02 04:00] VITALS: BP 106/81
[2022-02-02] MEDS: SODIUM CHLORIDE 0.9% INJ 3ML FLUSH IVF SCH ×3 (05:24→21:01)
[2022-02-02 05:55] LABS: CLARITY URINE CLOUDY (CLEAR); COLOR URINE YELLOW (YELLOW); KETONES URINE NEGATIVE (NEGATIVE); LEUKOCYTE ESTERASE URINE 2+ (NEGATIVE); NITRITE URINE NEGATIVE (NEGATIVE); OCCULT BLOOD URINE 1+ (NEGATIVE); PROTEIN URINE 1+ (NEGATIVE); SPECIFIC GRAVITY URINE 1.015 (1.005-1.030); UROBILINOGEN URINE 0.2 E.U./dL (0.2-1.0)
[2022-02-02 06:11] LABS: BASOPHILS % 0.6 % (0.0-2.0); EOSINOPHILS % 2.3 % (0.0-5.0); HEMATOCRIT. 30.1 % (42.0-52.0); HEMOGLOBIN. 9.7 g/dL (14.0-18.0); LYMPHOCYTES % 17.9 % (20.0-50.0); MEAN CORPUSCULAR HEMOGLOBIN 29.2 pg (28.0-32.0); MEAN CORPUSCULAR VOLUME 91.1 fL (80.0-94.0); MEAN PLATELET VOLUME 8.7 fl (7.4-10.4); MONOCYTES % 10.2 % (2.0-8.0); PLATELET 229 x1000/uL (130-400); RED CELL DISTRIBUTION WIDTH 20.3 % (11.6-14.6)
[2022-02-02 06:24] LABS: CHLORIDE 103 mEq/L (98-107)
[2022-02-02 06:33] LABS: PHOSPHORUS 4.3 mg/dL (2.5-4.9)
[2022-02-02 08:00] VITALS: BP 127/59
[2022-02-02] MEDS: FUROSEMIDE 40MG TABLET PO SCH ×2 (08:52→16:27)
[2022-02-02] MEDS: MIDODRINE HCL 5MG TABLET PO SCH ×3 (08:52→16:30)
[2022-02-02] MEDS: DOCUSATE SODIUM 250MG CAPSULE PO SCH ×2 (08:52→16:34)
[2022-02-02] MEDS: AZITHROMYCIN 250 MG TABLET PO SCH (08:53)
[2022-02-02] MEDS: CARVEDILOL 3.125 MG TABLET PO SCH ×2 (08:54→20:40)
[2022-02-02] MEDS: FAMOTIDINE 20MG TABLET PO SCH (08:54)
[2022-02-02] MEDS: ASPIRIN 81MG EC TABLET PO SCH (08:54)
[2022-02-02] MEDS: ENOXAPARIN 30MG/0.3ML SYR SUBCUT SCH (08:55)
[2022-02-02] MEDS: HEMORRHOIDAL SUPP PR SCH ×2 (08:55→20:41)
[2022-02-02 12:00] VITALS: BP 97/69
[2022-02-02 16:00] VITALS: BP 96/72
[2022-02-02] MEDS: IRON SUCROSE COMPLEX 100 MG/5 ML ML IV SCH (16:33)
[2022-02-02] MEDS: CEFTRIAXONE 1,000 MG in DEXTROSE 5% WATER 50 ML IV SCH (16:33)
[2022-02-02 20:00] VITALS: BP 109/84
[2022-02-03] VITALS: BP 105/62
[2022-02-03 04:00] VITALS: BP 97/72
[2022-02-03] MEDS: SODIUM CHLORIDE 0.9% INJ 3ML FLUSH IVF SCH ×2 (06:22→13:40)
[2022-02-03 06:53] LABS: BASOPHILS % 0.6 % (0.0-2.0); EOSINOPHILS % 2.3 % (0.0-5.0); HEMATOCRIT. 32.9 % (42.0-52.0); HEMOGLOBIN. 10.3 g/dL (14.0-18.0); LYMPHOCYTES % 20.2 % (20.0-50.0); MEAN CORPUSCULAR VOLUME 92.3 fL (80.0-94.0); MEAN PLATELET VOLUME 8.3 fl (7.4-10.4); MONOCYTES % 9.7 % (2.0-8.0); NEUTROPHILS % 67.2 % (40.0-76.0); PLATELET 261 x1000/uL (130-400); RED BLOOD CELL COUNT 3.57 mill/uL (4.7-6.1); RED CELL DISTRIBUTION WIDTH 21.1 % (11.6-14.6)
[2022-02-03 07:11] LABS: INR 1.4; PROTHROMBIN TIME 14.6 sec (9.6-11.0)
[2022-02-03 08:00] VITALS: BP 109/77
[2022-02-03] MEDS: ENOXAPARIN 30MG/0.3ML SYR SUBCUT SCH (08:36)
[2022-02-03] MEDS: FAMOTIDINE 20MG TABLET PO SCH (08:37)
[2022-02-03] MEDS: AZITHROMYCIN 250 MG TABLET PO SCH (08:37)
[2022-02-03] MEDS: ASPIRIN 81MG EC TABLET PO SCH (08:37)
[2022-02-03] MEDS: FUROSEMIDE 40MG TABLET PO SCH (08:37)
[2022-02-03] MEDS: HEMORRHOIDAL SUPP PR SCH (08:38)
[2022-02-03] MEDS: MIDODRINE HCL 5MG TABLET PO SCH ×2 (08:38→13:40)
[2022-02-03] MEDS: DOCUSATE SODIUM 250MG CAPSULE PO SCH (08:38)
[2022-02-03] MEDS: CARVEDILOL 3.125 MG TABLET PO SCH (08:41)
[2022-02-03 09:08] LABS: PHOSPHORUS 3.8 mg/dL (2.5-4.9)
[2022-02-03 12:00] VITALS: BP 104/73
[2022-02-03 14:41] VITALS: BP 104/73
[2022-02-03 16:00] VITALS: BP 105/70
[2022-02-04] MEDS ORDERED: ENOXAPARIN 40MG/0.4ML SYR SUBCUT SCH (09:00)
== END 2022-02-03 17:45 | disposition home health service (06) | DRG 291 ==
LOC: ER 18:33 → CVICU 01-25 00:32 → EDBEDREQTM 01-25 00:39 → EDBEDREQSVC 01-25 00:39 → EDBEDREQ 01-25 00:39 → ENRESERV 01-25 07:01 → CVICU 01-25 09:30 → 6WST 01-28 14:10 → 8WST 01-29 10:45
PROVIDERS: ADMIT Internal Medicine; ATTEND Internal Medicine
PROC: 5A09457 Assistance with Respiratory Ventilation, 24-96 Consecutive Hours, Continuous Positive Airway Pressure (ICD-10-PCS; principal; 2022-01-25)
PROC: 06HY33Z Insertion of Infusion Device into Lower Vein, Percutaneous Approach (ICD-10-PCS; 2022-01-25)
PROC: 5A09357 Assistance with Respiratory Ventilation, Less than 24 Consecutive Hours, Continuous Positive Airway Pressure (ICD-10-PCS; 2022-01-26)
PROC: 5A09357 Assistance with Respiratory Ventilation, Less than 24 Consecutive Hours, Continuous Positive Airway Pressure (ICD-10-PCS; 2022-01-27)
DX: I13.0 Hypertensive heart and chronic kidney disease with heart failure and stage 1 through stage 4 chronic kidney disease, or unspecified chronic kidney disease (principal); I50.23 Acute on chronic systolic (congestive) heart failure; J96.01 Acute respiratory failure with hypoxia; R57.0 Cardiogenic shock; N17.9 Acute kidney failure, unspecified; N18.4 Chronic kidney disease, stage 4 (severe); E87.1 Hypo-osmolality and hyponatremia; K92.1 Melena; I42.0 Dilated cardiomyopathy; E87.5 Hyperkalemia; I25.10 Atherosclerotic heart disease of native coronary artery without angina pectoris; E78.5 Hyperlipidemia, unspecified; I95.89 Other hypotension; R74.01 Elevation of levels of liver transaminase levels; I25.82 Chronic total occlusion of coronary artery; D50.9 Iron deficiency anemia, unspecified; G47.33 Obstructive sleep apnea (adult) (pediatric); F20.9 Schizophrenia, unspecified; I08.3 Combined rheumatic disorders of mitral, aortic and tricuspid valves; K56.41 Fecal impaction; I50.82 Biventricular heart failure; F17.210 Nicotine dependence, cigarettes, uncomplicated; Z20.822 Contact with and (suspected) exposure to COVID-19; I25.2 Old myocardial infarction; Z79.899 Other long term (current) drug therapy; Z82.49 Family history of ischemic heart disease and other diseases of the circulatory system
CPT/HCPCS: 36415; 36600; 71045; 74176; 76700; 78580; 80048; 80053; 80076; 81003; 82140; 82270; 82375; 82805; 82962; 83735; 83880; 84100; 84484; 85025; 86705; 86709; 86803; 87340; 87426; 93005; 93970; 94618; 94640; 94660; 97116; 97162; 97166; 99285; C1893; C9113; J0610; J0696; J1200; J1650; J3490; J7030; J7060; A4315